=== PATIENT | female | born 1945 | race African-American/Black ===

== ENCOUNTER → 2016-10-19 | Outpatient (CLI) | payer MEDICARE, OTHER ==
[~2016-10-19] MED LIST: ACETAMINOPHEN PR; ALBUTEROL17 GM INH; ASPIRIN EC81 M1 PO; ASPIRIN1 GM PO; ASPIRIN81 M1 PO; BACTRIM DS TABL1 TA2 PO; BROM-PSEUD-DM118 ML PO; BYETTA5 MCG/0.02 SQ; CIPRO PO; GLIPIZIDE10 MG PO; LISINOPRIL-HCTZ1 T14 PO; LISINOPRIL10 MG PO; METFORMIN HCL500 M1 PO; NABUMETONE PO; NAPROXEN PO; PRAVASTATIN SOD40 MG PO; VIBRAMYCIN100 M1 PO; ZITHROMAX PO; ZOFRAN PO
[2016-10-19 12:44] LABS: THYROID STIMULATING HORMONE 3.53 uIU/ml (0.34-5.60)
[2016-10-19 12:49] LABS: FREE T3 2.8 pg/mL (2.5-3.9)
[2016-10-19 12:50] LABS: FREE THYROXIN (T4) 0.6 ng/dL (0.58-1.64)
== END | disposition home or self-care (01) ==
LOC: CLAB 11:05
PROVIDERS: Specialist
DX: E04.2 Nontoxic multinodular goiter (principal)
CPT/HCPCS: 36415; 84439; 84443; 84481

== ENCOUNTER 2016-12-30 16:36 | Emergency (ER) | payer MEDICARE, OTHER ==
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
--- NOTE | ~2016-12-30 | CR20 ---
[facility]. [facility] A Service of [facility] & [facility] RADIOLOGY TEXT RESULTS PATIENT: KAYLEY CONTRERAS LOCATION: SED : 43 UNIT #: [id number] AGE: [address]: MYRON SANTO PA-C SEX: F ORDER DR: [id number] E MR#: [id number] Acc #: [id number] NAME: KAYLEY CONTRERAS. : 1945 SEX: F STUDY DATE/TIME: 12/30/2016 16:59 UNIT: SED ROOM: STUDY DESCRIPTION: CR Ankle Min 3 Views Lt Attending Physician: Myron Santo Pa-C Ordering Physician: Physician Non-Staff Primary Care Physician: Shabnam Miller M.D. MEDICAL IMAGING REPORT This report is preliminary unless electronic signature is present. EXAM Left ankle 3 views HISTORY Fell this morning, left ankle pain. FINDINGS Three views of the left ankle demonstrate no fracture, dislocation, arthritic or inflammatory change. Ankle mortise appears intact. IMPRESSION Negative left ankle. Dictated by... Bhavna Rivera M.D. THIS IS AN ELECTRONICALLY VERIFIED REPORT Bhavna Rivera M.D. at 12/31/2016 2:45 PM Efrem TD: 12/30/2016 17:42 JOB #: [id number] MEDICAL IMAGING REPORT Page 1 of 1
== END 2016-12-30 18:25 | disposition home or self-care (01) ==
LOC: SED 16:36
DX: S93.402A Sprain of unspecified ligament of left ankle, initial encounter (principal); M17.12 Unilateral primary osteoarthritis, left knee; I10 Essential (primary) hypertension; E11.9 Type 2 diabetes mellitus without complications; F17.210 Nicotine dependence, cigarettes, uncomplicated; Z79.82 Long term (current) use of aspirin; Z79.899 Other long term (current) drug therapy; W10.9XXA Fall (on) (from) unspecified stairs and steps, initial encounter; Y92.69 Other specified industrial and construction area as the place of occurrence of the external cause
CPT/HCPCS: 29505; 73560; 73610; 99283

== ENCOUNTER → 2017-03-22 | Outpatient (CLI) | payer MEDICARE, OTHER ==
--- NOTE | ~2017-03-22 | CT137 ---
[facility] A Service [facility] RADIOLOGY TEXT RESULTS PATIENT: KAYLEY CONTRERAS LOCATION: [facility] : 43 UNIT #: [id number] AGE: [address]: Shabnam Miller MD SEX: F ORDER DR: [id number] [id number] [place], [place] [address] [id number] O MR#: [id number] Acc #: [id number] NAME: KAYLEY CONTRERAS. : 1945 SEX: F STUDY DATE/TIME: 03/22/2017 15:56 UNIT: CCA ROOM: STUDY DESCRIPTION: CT Lung Screening annual Attending Physician: Shabnam Miller M.D. Referring Physician: Shabnam Miller M.D. Ordering Physician: Shabnam Miller M.D. Primary Care Physician: Shabnam Miller M.D. MEDICAL IMAGING REPORT This report is preliminary unless electronic signature is present EXAM CT chest INDICATION Lung cancer screening. 71-year-old female is a current smoker with a 51 pack year history of smoking. TECHNIQUE CT of the chest without contrast. Coronal and sagittal reconstructions were obtained. The exam was performed as a low-dose chest CT utilizing lung cancer screening protocol. CTDI volume 3 mGy. DLP 104.57 mGy-cm. This CT exam was performed with one or more of the following radiation dose reduction techniques: automatic exposure control, adjustment of mA and/or kV according to patient size, and iterative reconstruction. COMPARISON Lung cancer screening dated 01/27/2016. FINDINGS This is a negative lung cancer screening. No suspicious pulmonary findings. No focal consolidation. Central airways are patent. No enlarged mediastinal or hilar lymph nodes. Thoracic aorta is normal in caliber. No pericardial or pleural effusion. There is a benign cyst in the left hepatic lobe. No acute osseous abnormalities. The patient has undergone prior right mastectomy. [facility] A Service [facility] & [facility] RADIOLOGY TEXT RESULTS PATIENT: KAYLEY CONTRERAS LOCATION: [facility] : 43 UNIT #: [id number] AGE: [address]: Shabnam Miller MD SEX: F ORDER DR: IMPRESSION Negative lung cancer screening. ACR Lung-RADS classification 1: Negative examination. RECOMMENDATIONS Annual lung cancer screening with a low-dose chest CT. Dictated by... Rusty Denson M.D. THIS IS AN ELECTRONICALLY VERIFIED REPORT Rusty Denson M.D. at 03/23/2017 3:22 PM ANDREA/laura TD: 03/23/2017 11:46 JOB #: [id number] MEDICAL IMAGING REPORT Page 1 of 1 COPY
== END | disposition home or self-care (01) ==
LOC: CCAT 15:18
DX: F17.210 Nicotine dependence, cigarettes, uncomplicated (principal)
CPT/HCPCS: G0297